=== PATIENT | female | born 1945 | race Caucasian/White ===

== ENCOUNTER 2018-07-23 16:13 | Outpatient (REF) | payer MEDICARE, OTHER, SELFPAY ==
[2018-07-23 22:16] LABS: Anion Gap 9.5 mmol/L (3-11); BUN 12 mg/dL (7-18); CO2 28.5 mmol/L (21.0-32.0); CREATININE 0.68 mg/dL (0.55-1.02); Calcium 9.6 mg/dL (8.5-10.1); Chloride 100 mmol/L (98-107); Glucose 114 mg/dL (70-100); Potassium 3.4 mmol/L (3.5-5.1); Sodium 138 mmol/L (136-145)
== END 2018-07-23 16:33 ==
LOC: NCHCN 16:13
PROVIDERS: Visit Provider Nurse Practitioner Family
DX: R73.03 Prediabetes (principal); I10 Essential (primary) hypertension
CPT/HCPCS: 80048; 83036

== ENCOUNTER 2018-10-29 09:43 | Outpatient (REF) | payer MEDICARE, OTHER, SELFPAY | END 2018-10-29 10:03 | LOC: NCHCN 09:43 | PROVIDERS: PCP Nurse Practitioner Family; Visit Provider Nurse Practitioner Family | DX: I10 Essential (primary) hypertension (principal); Z86.39 Personal history of other endocrine, nutritional and metabolic disease | CPT/HCPCS: 84132 ==

== ENCOUNTER 2018-12-04 17:20 | Outpatient (REF) | payer MEDICARE, OTHER, SELFPAY ==
[2018-12-04 21:22] LABS: Potassium 3.4 mmol/L (3.5-5.1)
== END 2018-12-04 17:40 ==
LOC: NCHCN 17:20
PROVIDERS: PCP Nurse Practitioner Family; Visit Provider Registered Nurse
DX: Z86.39 Personal history of other endocrine, nutritional and metabolic disease (principal); I10 Essential (primary) hypertension
CPT/HCPCS: 84132

== ENCOUNTER 2019-01-01 13:38 | Outpatient (REF) | payer MEDICARE, OTHER, SELFPAY ==
[2019-01-01 22:36] LABS: Potassium 3.6 mmol/L (3.5-5.1)
== END 2019-01-01 13:58 ==
LOC: NCHCN 13:38
PROVIDERS: PCP Nurse Practitioner Family; Visit Provider Registered Nurse
DX: E87.6 Hypokalemia (principal); R39.9 Unspecified symptoms and signs involving the genitourinary system
CPT/HCPCS: 84132; 87086

== ENCOUNTER 2019-03-28 10:46 | Outpatient (REF) | payer MEDICARE, OTHER, SELFPAY ==
[2019-03-28 22:34] LABS: BUN 19 mg/dL (7-18); CREATININE 0.73 mg/dL (0.55-1.02); Chloride 103 mmol/L (98-107); Glucose 95 mg/dL (74-106); Magnesium 1.6 mg/dL (1.8-2.4); Sodium 140 mmol/L (136-145); Vitamin B12 378 pg/mL (193-986)
== END 2019-03-28 11:06 ==
LOC: NCHCN 10:46
PROVIDERS: PCP Nurse Practitioner Family; Visit Provider Nurse Practitioner Family
DX: I10 Essential (primary) hypertension (principal); R73.03 Prediabetes; K21.9 Gastro-esophageal reflux disease without esophagitis; Z86.39 Personal history of other endocrine, nutritional and metabolic disease
CPT/HCPCS: 80048; 82607; 83735

== ENCOUNTER 2019-10-24 13:41 | Outpatient (REF) | payer MEDICARE, OTHER, SELFPAY ==
[2019-10-24 20:59] LABS: HCT 32.5 % (36.0-46.0); HGB 9.9 g/dL (12.0-15.5); Mean Corp. HGB Concentration 30.5 g/dL (32.0-36.0); Mean Corpuscular Hemoglobin 24.7 pg (27.0-33.0); Mean Platelet Volume 9.6 fL (8.0-11.0); Platelet Count 482 x1000/uL (130-400); RBC 4.01 m/cumm (4.00-5.20); RBC Distribution Width 14.9 % (11.7-14.6); White Blood Cell Count 7.03 k/cumm (4.4-10.8)
[2019-10-24 21:41] LABS: Iron 27 ug/dL (50-170); Total Iron Binding Capacity 361 ug/dL (250-450)
[2019-10-24 21:51] LABS: Folate 17.2 ng/mL (8.6-20.0)
== END 2019-10-24 14:01 ==
LOC: NCHCN 13:41
PROVIDERS: PCP Nurse Practitioner Family; Visit Provider Nurse Practitioner Family
DX: D64.9 Anemia, unspecified (principal)
CPT/HCPCS: 85027; 82746; 83540; 83550

== ENCOUNTER 2019-12-15 13:47 | Outpatient (REF) | payer MEDICARE, OTHER, SELFPAY ==
[2019-12-15 21:03] LABS: HGB 11.5 g/dL (11.2-15.7); MCH 25.4 pg (27.0-33.0); MCHC 31.1 % (32.0-36.0); MCV 81.7 fL (80-95); MPV 10.2 fL (8.0-11.0); Platelet Count 373 10^3/uL (130-400); RBC 4.53 10^6/uL (3.93-5.22); RDW 18.7 % (11.7-14.6); RDW-SD 55.7 fL
[2019-12-15 21:16] LABS: Iron 47 ug/dL (50-170); Total Iron Binding Capacity 343 ug/dL (250-450); Transferrin Sat 14 % (15-50)
== END 2019-12-15 14:07 ==
LOC: NCHCN 13:47
PROVIDERS: PCP Nurse Practitioner Family; Visit Provider Nurse Practitioner Family
DX: D50.9 Iron deficiency anemia, unspecified (principal); F32.0 Major depressive disorder, single episode, mild
CPT/HCPCS: 85027; 83540; 83550

== ENCOUNTER 2020-09-21 11:14 | Outpatient (REF) | payer MEDICARE, OTHER, SELFPAY ==
[2020-09-21 13:45] LABS: HCT 39.2 % (36.0-46.0); HGB 12.5 g/dL (11.2-15.7); MCH 30.4 pg (27.0-33.0); MCHC 31.9 % (32.0-36.0); MCV 95.4 fL (80-95); Platelet Count 342 10^3/uL (130-400); RBC 4.11 10^6/uL (3.93-5.22); RDW 12.9 % (11.7-14.6); RDW-SD 45.2 fL; WBC 6.82 10^3/uL (4.4-10.8)
[2020-09-21 13:58] LABS: Iron 52 ug/dL (50-170); Total Iron Binding Capacity 333 ug/dL (250-450); Transferrin Sat 16 % (15-50)
[2020-09-21 14:29] LABS: Anion Gap 7.2 mmol/L (3-11); BUN 14 mg/dL (7-18); CO2 30.8 mmol/L (21.0-32.0); CREATININE 0.7 mg/dL (0.55-1.02); Calcium 9.4 mg/dL (8.5-10.1); Chloride 104 mmol/L (98-107); Ferritin 18 ng/mL (8-252); Glucose 96 mg/dL (74-106); Magnesium 1.7 mg/dL (1.8-2.4); Potassium 4.4 mmol/L (3.5-5.1); Sodium 142 mmol/L (136-145); TSH 1.64 uIU/mL (0.36-3.74); Vitamin B12 249 pg/mL (193-986)
[2020-09-21 15:00] LABS: Hemoglobin A1C 5.3 % (<5.7)
== END 2020-09-21 11:15 | disposition home or self-care (01) ==
LOC: NCHCN 11:14
PROVIDERS: PCP Nurse Practitioner Family; Visit Provider Nurse Practitioner Family
DX: I10 Essential (primary) hypertension (principal); R73.03 Prediabetes; E83.42 Hypomagnesemia; F32.0 Major depressive disorder, single episode, mild; D50.9 Iron deficiency anemia, unspecified; M17.0 Bilateral primary osteoarthritis of knee; Z86.39 Personal history of other endocrine, nutritional and metabolic disease
CPT/HCPCS: 80048; 85027; 82607; 82728; 83036; 83540; 83550; 83735; 84443

== ENCOUNTER 2020-11-08 13:03 | Outpatient (REF) | payer MEDICARE, OTHER, SELFPAY | END 2020-11-08 13:04 | disposition home or self-care (01) | LOC: LBN 13:03 | PROVIDERS: PCP Nurse Practitioner Family; Visit Provider Nurse Practitioner Family | DX: R30.0 Dysuria (principal) | CPT/HCPCS: 87077; 87086; 87186 ==

== ENCOUNTER 2021-02-21 11:13 | Outpatient (REF) | payer MEDICARE, OTHER, SELFPAY ==
[2021-02-21 16:06] LABS: HCT 39.9 % (36.0-46.0); HGB 12.7 g/dL (11.2-15.7); MCH 28.9 pg (27.0-33.0); MCHC 31.8 % (32.0-36.0); MCV 90.9 fL (80-95); MPV 10.5 fL (8.0-11.0); Platelet Count 365 10^3/uL (130-400); RBC 4.39 10^6/uL (3.93-5.22); RDW 13.3 % (11.7-14.6); RDW-SD 44.7 fL; WBC 7.51 10^3/uL (4.4-10.8)
[2021-02-21 17:10] LABS: Iron 120 ug/dL (50-170); Total Iron Binding Capacity 309 ug/dL (250-450); Transferrin Sat 39 % (15-50)
[2021-02-21 17:21] LABS: BUN 12 mg/dL (7-18); CREATININE 0.7 mg/dL (0.55-1.02); Chloride 102 mmol/L (98-107); Ferritin 24 ng/mL (8-252); Glucose 98 mg/dL (74-106); Potassium 3.9 mmol/L (3.5-5.1); Sodium 141 mmol/L (136-145); Vitamin B12 267 pg/mL (193-986)
== END 2021-02-21 11:14 | disposition home or self-care (01) ==
LOC: NCHCN 11:13
PROVIDERS: PCP Nurse Practitioner Family; Visit Provider Nurse Practitioner Family
DX: D50.9 Iron deficiency anemia, unspecified (principal); R01.1 Cardiac murmur, unspecified; I10 Essential (primary) hypertension; I83.10 Varicose veins of unspecified lower extremity with inflammation; R73.03 Prediabetes; G89.4 Chronic pain syndrome
CPT/HCPCS: 80048; 85027; 82607; 82728; 83540; 83550

== ENCOUNTER 2021-08-22 16:01 | Outpatient (REF) | payer MEDICARE, OTHER, SELFPAY ==
[2021-08-22 22:24] LABS: HCT 38.1 % (36.0-46.0); HGB 12.1 g/dL (11.2-15.7); MCH 29.4 pg (27.0-33.0); MCHC 31.8 % (32.0-36.0); MCV 93 fL (80-95); MPV 11.2 fL (8.0-11.0); Platelet Count 346 10^3/uL (130-400); RBC 4.11 10^6/uL (3.93-5.22); RDW 13.3 % (11.7-14.6); RDW-SD 45.3 fL; WBC 8.26 10^3/uL (4.4-10.8)
[2021-08-22 22:27] LABS: ALT 18 U/L (14-59); AST 17 U/L (15-37); Albumin 3.3 g/dL (3.4-5.0); Alkaline Phosphatase 97 U/L (46-116); BUN 14 mg/dL (7-18); Bilirubin, Total 0.4 mg/dL (0.2-1.0); CREATININE 0.9 mg/dL (0.55-1.02); Calcium 8.7 mg/dL (8.5-10.1); Chloride 101 mmol/L (98-107); Glucose 109 mg/dL (74-106); Potassium 3.2 mmol/L (3.5-5.1); Sodium 139 mmol/L (136-145); Total Protein 6.5 g/dL (6.4-8.2)
[2021-08-22 22:32] LABS: Iron 35 ug/dL (50-170); Total Iron Binding Capacity 245 ug/dL (250-450); Transferrin Sat 14 % (15-50)
== END 2021-08-22 16:02 | disposition home or self-care (01) ==
LOC: NCHCN 16:01
PROVIDERS: PCP Nurse Practitioner Family; Visit Provider Nurse Practitioner Family
DX: K92.1 Melena (principal); D50.9 Iron deficiency anemia, unspecified
CPT/HCPCS: 80053; 85027; 83540; 83550

== ENCOUNTER 2021-08-23 20:39 | Outpatient (REF) | payer MEDICARE, OTHER, SELFPAY | END 2021-08-23 20:40 | disposition home or self-care (01) | LOC: NCHCN 20:39 | PROVIDERS: PCP Nurse Practitioner Family; Visit Provider Nurse Practitioner Family | CPT/HCPCS: 87329; 87493; 87505; 83630; 87177 ==

== ENCOUNTER 2021-09-08 09:07 | Outpatient (REF) | payer MEDICARE, OTHER, SELFPAY ==
[2021-09-08 14:15] LABS: HCT 38.1 % (36.0-46.0); HGB 12.1 g/dL (11.2-15.7); MCH 28.7 pg (27.0-33.0); MCHC 31.8 % (32.0-36.0); MCV 90 fL (80-95); MPV 11.2 fL (8.0-11.0); Platelet Count 351 10^3/uL (130-400); RBC 4.22 10^6/uL (3.93-5.22); RDW 13.8 % (11.7-14.6); RDW-SD 45.7 fL; WBC 5.67 10^3/uL (4.4-10.8)
[2021-09-08 14:23] LABS: Anion Gap 7.5 mmol/L (3-11); BUN 14 mg/dL (7-18); CO2 27.5 mmol/L (21.0-32.0); CREATININE 0.7 mg/dL (0.55-1.02); Calcium 9.4 mg/dL (8.5-10.1); Chloride 103 mmol/L (98-107); Glucose 110 mg/dL (74-106); Potassium 4.1 mmol/L (3.5-5.1); Sodium 138 mmol/L (136-145)
[2021-09-08 15:29] LABS: Iron 96 ug/dL (50-170); Total Iron Binding Capacity 288 ug/dL (250-450); Transferrin Sat 33 % (15-50)
[2021-09-08 15:42] LABS: Ferritin 42 ng/mL (8-252)
== END 2021-09-08 09:08 | disposition home or self-care (01) ==
LOC: NCHCN 09:07
PROVIDERS: PCP Nurse Practitioner Family; Visit Provider Nurse Practitioner Family
DX: D50.9 Iron deficiency anemia, unspecified (principal); I10 Essential (primary) hypertension; Z87.19 Personal history of other diseases of the digestive system; R19.7 Diarrhea, unspecified; I83.10 Varicose veins of unspecified lower extremity with inflammation
CPT/HCPCS: 80048; 85027; 82728; 83540; 83550

== ENCOUNTER 2021-11-12 10:43 | Emergency (ER) | payer MEDICARE, OTHER, SELFPAY ==
[2021-11-12 10:59] VITALS: BP 122/65; PULSE 100; RESP 18; TEMP 36.9; O2SAT 95
--- NOTE | 2021-11-12 11:01 | W.ED.GENAD ---
Discharge Plan Disposition Patient Disposition: HOME Condition: Stable Discharge Details Clinical Impression: Acute UTI Primary Care Provider: Mira Davies ED Provider: Bernard Juan Home Meds and New Rx's Prescriptions: New nitrofurantoin monohyd/m-cryst [Macrobid] 100 mg capsule 100 mg PO Q12H 7 Days Qty: 14 0RF Rx Instructions: must administer with a meal/food Continued atorvastatin 20 mg Tablet 20 mg PO QHS citalopram 40 mg Tablet 40 mg PO DAILY chlorthalidone 25 mg Tablet 25 mg PO DAILY gabapentin 800 mg Tablet 800 mg PO TID omeprazole 20 mg Capsule,Delayed Release(Dr/Ec) 20 mg PO DAILY celecoxib 100 mg Capsule 100 mg PO DAILY losartan 100 mg Tablet 100 mg PO DAILY magnesium 200 mg Tablet 400 mg PO DAILY bupropion HCl 150 mg Tablet Extended Release 24 Hr 150 mg PO DAILY Fish Oil 340-1,000 mg Capsule 1 cap PO BID ferrous gluconate 324 mg (38 mg iron) Tablet 324 mg PO DAILY calcium carb,lactat-vitamin D3 200 mg-6.25 mcg (250 unit) Tablet 1 tab PO DAILY potassium chloride 20 mEq Tablet Extended Release 20 meq PO DAILY B12 Active 1,000 mcg Tablet,Chewable 1,000 mcg PO DAILY Discharge Instructions Instructions: Urinary Tract Infection in Women (ED) Additional Instructions: Macrobid as directed. Plenty of fluids to avoid dehydration. [id number]-skbizbc medications such as Azo and/or Tylenol for symptomatic control. Please watch for new or worsening symptoms and return to the ER for any concerns. Otherwise please contact your primary care provider on Sunday to discuss your ER visit and need for outpatient reevaluation.r Medical Decision Making 75-year-old female presents for evaluation of UTI-like symptoms, denies fever, chills, vomiting. Clinically she appears well, nontoxic. No evidence of hypotension, fever, heart rate in the 90s. Plan is to repeat urinalysis and obtain culture as well as obtain routine screening values such as CBC and CMP. Will give 1 L IV fluid White blood cell count of 18.45 urine reveals nitrate positive, moderate leuk esterase, greater than 50 white cells. Culture is indicated I reviewed the patient's culture activity from 11-08-2020, to isolate, greater than 100,000 E. coli UA following extended spectrum beta she was-lactamases, susceptible to Macrobid, imipenem, piperacillin-tazobactam. I did review the up-to-date recommendations on ESBL. With uncomplicated cystitis in the setting of ESBL both Macrobid and fosfomycin would be appropriate While she does have moderate leukocytosis, she does appear well, nontoxic, no evidence of tachycardia, hypotension, or vomiting. No CVA tenderness. Discussed work-up with patient and family, discussed options. Again she would prefer to be discharged home if at all possible. I do feel as though initiating oral antibiotics and strict return precautions is reasonable. She has not had any antibiotic therapy and thus has not failed any antibiotic therapy. Plan is to provide first dose of Macrobid now. Strict discharge and return precautions were provided. Patient understands, is agreeable to this plan, and has no additional questions or concerns upon discharge. This documentation was generated using [employer] system, please disregard any oddities of phrase or misspellings. Medical Records Medical records reviewed: Yes I reviewed the patient's medical records. Lab Data Lab results reviewed: Yes I reviewed the patient's lab results. Labs: 11/12/21 10:55 Urine - Reflex from Ua Urine Culture - Pending Laboratory Tests Range/Units 11/12/21 11/12/21 11/12/21 10:55 11:43 11:43 WBC (4.4-10.8) 10^3/uL 18.45 H RBC (3.93-5.22) 10^6/uL 3.68 L Hgb (11.2-15.7) g/dL 11.2 Hct (36.0-46.0) % 32.9 L MCV (80-95) fL 89 MCH (27.0-33.0) pg 30.4 MCHC (32.0-36.0) % 34.0 RDW (11.7-14.6) % 13.8 Plt Count (130-400) 10^3/uL 303 MPV (8.0-11.0) fL 9.8 Immature Gran % 0.5 Neutrophils % 86.5 Lymphocytes % 5.4 Monocytes % 7.2 Eosinophils % 0.1 Basophils % 0.3 Nucleated RBC % (0.0-0.3) % 0.0 Absolute Neutrophils (1.2-6.7) 10^3/uL 15.96 H Absolute Lymphocytes (1.2-3.4) 10^3/uL 1.00 L Absolute Monocytes (0.1-0.8) 10^3/uL 1.33 H Absolute Eosinophils (0.0-0.7) 10^3/uL 0.02 Absolute Basophils (0.0-0.2) 10^3/uL 0.06 Sodium (136-145) mmol/L 134 L Potassium (3.5-5.1) mmol/L 3.4 L Chloride (98-107) mmol/L 98 Carbon Dioxide (21.0-32.0) mmol/L 28.0 Anion Gap (3-11) mmol/L 8.0 BUN (7-18) mg/dL 12 Creatinine (0.55-1.02) mg/dL 0.8 Estimated GFR/1.73 m2 (mL/min/1.73m2) >= 60.00 Glucose (74-106) mg/dL 117 H Calcium (8.5-10.1) mg/dL 9.0 Total Bilirubin (0.2-1.0) mg/dL 1.1 H AST (15-37) U/L 20 ALT (14-59) U/L 21 Alkaline Phosphatase (46-116) U/L 105 Total Protein (6.4-8.2) g/dL 6.6 Albumin (3.4-5.0) g/dL 2.9 L Urine Color (Yellow) Yellow Urine Clarity (Clear) Sl Cloudy Urine pH (5-8) 7.5 Ur Specific [place] (1.005-1.025) 1.015 Urine Protein (Negative) mg/dL 30 H Urine Ketones (Negative) mg/dL Trace H Urine Blood (Negative) Trace-intact H Urine Nitrite (Negative) Positive H Urine Bilirubin (Negative) Negative Urine Urobilinogen (Up TO 0.2) EU/dL 1.0 H Ur Leukocyte Esterase (Negative) Moderate H Urine RBC (0-2) HPF 3-5 H Urine WBC (0-5) HPF >50 H Ur Epithelial Cells (Negative) HPF Few Urine Crystals (Negative) HPF Negative Urine Bacteria (Negative) HPF Moderate Urine Casts (Negative) LPF Negative Urine Mucus (Negative) Negative Urine Other (Negative) Few Renal Ur Culture Indicated? Yes Urine Glucose (Negative) mg/dL Negative HPI General Mode of arrival: ambulatory. Date/Time Provider Initiated Documentation: 11/12/21 10:45. Limitations to Documentation: no limitations. Information obtained by: patient. HPI Narrative: This is a 75-year-old female with a past medical history that includes GERD, hyperlipidemia depression hypertension, presenting to the ER for UTI-like symptoms for the past 6 days. Seen at urgent care just prior to arrival, previous culture and sensitivity revealed ESBL, urgent care does not have Macrobid or fosfomycin so recommended coming to the ER for further evaluation. Patient denies any fever or chills. Reports some mild lower abdominal pressure, occasional nausea but no vomiting. Occasional bilateral lower back pain. She denies recent illness or trauma. Patient states that she would prefer to be discharged home as opposed to hospitalization with IV antibiotics. Related Data Home Medications Medication Instructions Recorded Confirmed atorvastatin 20 mg tablet 20 mg PO QHS 11/12/21 11/12/21 bupropion HCl 150 mg 24 hr tablet, 150 mg PO DAILY 11/12/21 11/12/21 extended release calcium carb and lactate 200 1 tab PO DAILY 11/12/21 11/12/21 mg-vitamin D3 6.25 mcg (250 unit) tablet celecoxib 100 mg capsule 100 mg PO DAILY 11/12/21 11/12/21 chlorthalidone 25 mg tablet 25 mg PO DAILY 11/12/21 11/12/21 citalopram 40 mg tablet 40 mg PO DAILY 11/12/21 11/12/21 ferrous gluconate 324 mg (38 mg 324 mg PO DAILY 11/12/21 11/12/21 iron) tablet gabapentin 800 mg tablet 800 mg PO TID 11/12/21 11/12/21 losartan 100 mg tablet 100 mg PO DAILY 11/12/21 11/12/21 magnesium 200 mg tablet 400 mg PO DAILY 11/12/21 11/12/21 mecobalamin (vitamin B12) 1,000 1,000 mcg PO DAILY 11/12/21 11/12/21 mcg chewable tablet (B12 Active) nitrofurantoin 100 mg PO Q12H 7 days #14 caps 11/12/21 monohydrate/macrocrystals 100 mg capsule (Macrobid) omega-3 fatty acids-fish oil 340 1 cap PO BID 11/12/21 11/12/21 mg-1,000 mg capsule (Fish Oil) omeprazole 20 mg capsule,delayed 20 mg PO DAILY 11/12/21 11/12/21 release potassium chloride 20 mEq 20 meq PO DAILY 11/12/21 11/12/21 tablet,extended release Previous Rx's Medication Instructions Recorded nitrofurantoin 100 mg PO Q12H 7 days #14 caps 11/12/21 monohydrate/macrocrystals 100 mg capsule (Macrobid) Allergies Allergy/AdvReac Type Severity Reaction Status Date / Time lisinopril AdvReac Other (See Unverified 11/12/21 12:55 Comment) Review of Systems Constitutional Constitutional: Denies fever(s) Cardiovascular Cardiovascular: Denies chest pain and Denies dyspnea Respiratory Respiratory: Denies dyspnea Gastrointestinal Gastrointestinal: Reports abdominal pain (Low pressure), Reports nausea and Denies vomiting Genitourinary Genitourinary: Denies hematuria and Reports dysuria Musculoskeletal Musculoskeletal: Reports back pain Integumentary/Breasts Skin/Breast: Denies rash PFSH All Active Problems Acute UTI (Acute) Social History Smoking/Tobacco Use Status: Never Smoking risk assessment performed?: Yes Alcohol Intake: current Alcohol Intake frequency: a few times a week Drug use: Never Substance use type: does not use Do you feel safe at home: Yes Do you feel safe in your relationship?: Yes Exam Const General: cooperative, healthy appearing, comfortable and no acute distress Orientation: alert and awake HENMT Head: normal to inspection, normocephalic and atraumatic Eyes Conjunctivae: conjunctivae normal Neck Neck: normal visual inspection, trachea midline and supple Resp Effort & Inspection: normal respiratory effort and able to speak in complete sentences Auscultation: clear to auscultation bilaterally Cardio Rate: regular rate Rhythm: regular rhythm GI Inspection: obesity Palpation: soft, not firm, no guarding, no pulsatile masses and nontender Auscultation: normal bowel sounds Back/Spine/Pelvis Back: no CVA tenderness and No back tenderness Skin General skin exam: no rashes or lesions noted Neuro General: patient alert, patient awake, moves all extremities and no focal motor deficits Sensory Exam: no sensory deficits noted Psych Appearance: grossly normal Mental Status: mental status grossly normal
[2021-11-12 11:03] LABS: Bilirubin Negative (Negative); Blood Trace-intact (Negative); Clarity Sl Cloudy (Clear); Glucose Negative (Negative); Ketones Trace mg/dL (Negative); Leukocyte Esterase Moderate (Negative); Nitrite Positive (Negative); Specific Gravity 1.015 (1.005-1.025); pH 7.5 (5-8)
[2021-11-12 11:18] LABS: Epithelial Cells Few HPF (Negative); WBC >50 HPF (0-5)
[2021-11-12 11:19] LABS: Bacteria Moderate HPF (Negative); C & S Indicated? Yes; Casts Negative LPF (Negative); Crystals Negative HPF (Negative); Mucus Negative (Negative); Other Cells Few Renal (Negative)
[2021-11-12] MEDS: Normal Saline 1,000 ML 1000 ML IV (11:46)
[2021-11-12 11:53] LABS: Abs Immature Grans 0.09 10^3/uL (0.0-0.06); Absolute Monocyte Count 1.33 10^3/uL (0.1-0.8); Basophils % 0.3; Eosinophils % 0.1; HCT 32.9 % (36.0-46.0); HGB 11.2 g/dL (11.2-15.7); Immature Grans % 0.5; Lymphocytes % 5.4; MCH 30.4 pg (27.0-33.0); MCV 89 fL (80-95); MPV 9.8 fL (8.0-11.0); Monocytes % 7.2; Neutrophils % 86.5; Platelet Count 303 10^3/uL (130-400); RBC 3.68 10^6/uL (3.93-5.22); RDW 13.8 % (11.7-14.6); RDW-SD 45.1 fL; WBC 18.45 10^3/uL (4.4-10.8)
[2021-11-12 12:06] LABS: ALT 21 U/L (14-59); AST 20 U/L (15-37); Albumin 2.9 g/dL (3.4-5.0); Alkaline Phosphatase 105 U/L (46-116); BUN 12 mg/dL (7-18); Bilirubin, Total 1.1 mg/dL (0.2-1.0); CREATININE 0.8 mg/dL (0.55-1.02); Chloride 98 mmol/L (98-107); Glucose 117 mg/dL (74-106); Potassium 3.4 mmol/L (3.5-5.1); Sodium 134 mmol/L (136-145); Total Protein 6.6 g/dL (6.4-8.2)
[2021-11-12 12:07] LABS: Absolute Basophil Count 0.06 10^3/uL (0.0-0.2); Absolute Eosinophil Count 0.02 10^3/uL (0.0-0.7); Absolute Neutrophil Count 15.96 10^3/uL (1.2-6.7)
[2021-11-12] MEDS: MacroBID 100 MG CAP PO (12:39)
[2021-11-12 13:06] VITALS: BP 146/85; PULSE 95; RESP 18; O2SAT 97
== END 2021-11-12 13:05 | disposition home or self-care (01) ==
PROVIDERS: Emergency Provider Physician Assistant; PCP Nurse Practitioner Family
DX: N39.0 Urinary tract infection, site not specified (principal); B96.20 Unspecified Escherichia coli [E. coli] as the cause of diseases classified elsewhere
CPT/HCPCS: 36415; 80053; 87077; 96360; 99284; 81003; 81015; 85025; 87086; 87186

== ENCOUNTER 2021-11-12 13:17 | Outpatient (REF) | payer MEDICARE, OTHER, SELFPAY | END 2021-11-12 13:18 | disposition home or self-care (01) | LOC: LBN 13:17 | PROVIDERS: PCP Nurse Practitioner Family; Visit Provider Nurse Practitioner Family ==

== ENCOUNTER 2021-11-14 11:02 | Inpatient (IN) | payer MEDICARE, OTHER, SELFPAY ==
[2021-11-14] VITALS (8 sets, daily range): BP systolic 116–144; BP diastolic 61–75; PULSE 82–94; RESP 14–20; TEMP 37.7–38.3; O2SAT 94–97
--- NOTE | 2021-11-14 11:36 | ED.GENADUL_ITS ---
Discharge Plan Disposition Patient Disposition: [facility] IN[facility] Condition: Improving Discharge Details Chief Complaint: GenMedical Clinical Impression: Acute UTI, Sepsis Admit Date/Time: 11/14/21 13:19 Admit Provider: Misty Richter Attending Provider: Misty Richter Primary Care Provider: Mira Davies ED Provider: Rosetta Orona Discharge Instructions Activity:: Activity as Tolerated Equipment/Supplies:: No Equipment Needed Diet:: As Tolerated Discharge Orders Discharge Orders: Discharge Order (Routine); Ordered 11/16/21 Ordered By: Eli Montalvo Discharge Data Discharge Date/Time-TO BE ENTERED AT DEPARTURE: 11/14/21 14:46 Medical Decision Making Patient is a pleasant 75-year-old female, accompanied by significant other, with chief complaint of nausea, vomiting, UTI, fever. Patient was seen here 2 days ago at which time she was diagnosed with a urinary tract infection. Patient E. coli, sensitivities are pending. At that time, patient was noted to have notable leukocytosis with a white count of 18 but was otherwise doing well systemically. Patient was started on Macrobid. Has been tolerating medication well up until this morning. Did not take it secondary to nausea and vomiting. States that she began having some vomiting and diarrhea yesterday. Describes having multiple very small loose bowel movements since starting the antibiotics. She denies any abdominal pain. Denies any hematemesis, bright red blood per rectum or melena. Past surgical history pertinent for hysterectomy, appendectomy, tubal ligation. Continues to have dysuria, increased frequency and urgency. Began having chills yesterday but no documented fever at home. Has not taken antipyretics today. On exam, patient appears acutely ill. She is hypertensive, tachycardic and febrile. Lungs are clear, abdomen is benign. She has tenderness with percuss ion over right CVA. No lower extremity edema although the patient does report that she can have lower extremity edema from time to time. She endorses past medical history pertinent for hypertension, hypercholesterolemia but denies any history of CHF or other cardiac etiology. Concern at this time for worsening UTI, possible bacteremia. Will obtain blood cultures, repeat labs, obtain C. difficile testing, gently hydrate the patient, provide antipyretic, antiemetic and antibiotic. Reviewed up-to-date for E. coli IV options and will treat patient with cefepime. Labs reviewed. White count is downtrending now to 15.9. CMP significant for slightly low potassium at 3.4, replenish this here. She does have an anion anion gap of 13. Kidney function within normal limits. Alk phos is slightly elevated at 135 which is new for the patient. Albumin 2.7, she does appear to be slightly chronically low. Urine pending. Reevaluated the patient. She is currently afebrile, her nausea has resolved and she is feeling significantly improved. As the patient did fail outpatient management, I do feel that admission would be appropriate which she and her are in agreement with. I am concerned that if she was to return home she may continue to vomit not able to tolerate her antibiotics. Consulted Dr. LEVIN who agrees to admission. Wound looked more at patient's previous urinalyses we will transition her to a different regimen based on previous sensitivities. Dr. Richter agrees to admission. POONAM test ordered. Patient agreement with plan. HPI General Date/Time Provider Initiated Documentation: 11/14/21 11:22 . Limitations to Documentation: no limitations . Information obtained by: patient, family, RN notes reviewed and old records reviewed . History of Present Illness 75 year old F presents to the emergency department with the chief complaint of Dysuria, urgency, frequency, fever, nausea, vomiting, described as moderate, Quality is described as burning, and is localized to the pelvis and genitals. Patient reports no radiation. Patient started experiencing this day(s) and it has been constant. No relieving factors improve symptom(s), Other factors that worsen symptoms (with urination) . Patient notes fever/chills, loss of appetite, malaise and nausea/vomiting; denies chest pain, cough, diaphoresis, rash and shortness of breath. Patient did receive the following treatments prior to arrival, other (nitrofurantoin) Related Data Home Medications Medication Instructions Recorded Confirmed atorvastatin 20 mg tablet 20 mg PO QHS 11/12/21 11/14/21 bupropion HCl 150 mg 24 hr tablet, 150 mg PO DAILY 11/12/21 11/14/21 extended release calcium carb and lactate 200 1 tab PO DAILY 11/12/21 11/14/21 mg-vitamin D3 6.25 mcg (250 unit) tablet celecoxib 100 mg capsule 100 mg PO DAILY 11/12/21 11/14/21 chlorthalidone 25 mg tablet 25 mg PO DAILY 11/12/21 11/14/21 citalopram 40 mg tablet 40 mg PO DAILY 11/12/21 11/14/21 ferrous gluconate 324 mg (38 mg 324 mg PO DAILY 11/12/21 11/14/21 iron) tablet gabapentin 800 mg tablet 800 mg PO TID 11/12/21 11/14/21 losartan 100 mg tablet 100 mg PO DAILY 11/12/21 11/14/21 magnesium 200 mg tablet 400 mg PO DAILY 11/12/21 11/14/21 mecobalamin (vitamin B12) 1,000 1,000 mcg PO DAILY 11/12/21 11/14/21 mcg chewable tablet (B12 Active) omega-3 fatty acids-fish oil 340 1 cap PO BID 11/12/21 11/14/21 mg-1,000 mg capsule (Fish Oil) omeprazole 20 mg capsule,delayed 20 mg PO DAILY 11/12/21 11/14/21 release potassium chloride 20 mEq 20 meq PO DAILY 11/12/21 11/14/21 tablet,extended release Allergies Allergy/AdvReac Type Severity Reaction Status Date / Time lisinopril AdvReac Other (See Unverified 11/14/21 11:14 Comment) nitrofurantoin AdvReac Severe Other (See Uncoded 11/14/21 18:24 Comment) General Stated Complaint: GenMedical CARO: 3 Review of Systems Constitutional Constitutional: Reports as per HPI and Denies headache(s) ENT Ears, Nose, Mouth, and Throat: Denies headache(s) Cardiovascular Cardiovascular: Reports as per HPI, Denies chest pain and Denies dyspnea Respiratory Respiratory: Reports as per HPI, Denies cough and Denies dyspnea Gastrointestinal Gastrointestinal: Reports as per HPI Musculoskeletal Musculoskeletal: Reports as per HPI Integumentary/Breasts Skin/Breast: Reports as per HPI and Denies rash Neurologic Neurologic: Reports as per HPI and Denies headache(s) PFSH All Active Problems (Updated 11/28/21 @ 08:32 by ABHAY Szymanski) Hypomagnesemia (Acute) Adverse effect of nitrofurantoin (Acute) Sepsis (Acute) E. coli UTI (Acute) Acute UTI (Acute) Medical History (Updated 11/28/21 @ 08:32 by ABHAY Szymanski) Chronic edema GERD (gastroesophageal reflux disease) History of ESBL E. coli infection Hypertension Hypokalemia Iron deficiency anemia Uterine cancer Surgical History (Updated 11/14/21 @ 19:16 by Misty Richter MD) H/O total hysterectomy with bilateral salpingo-oophorectomy (BSO) H/O tubal ligation History of appendectomy S/p bilateral shoulder joint replacement Family History (Updated 11/14/21 @ 19:18 by Misty Richter MD) Mother Cancer breast Brother Cancer colorectal cancer Father Cancer metastatic cancer of unknown primary Social History Smoking/Tobacco Use Status: Never Smoking risk assessment performed?: Yes Alcohol Intake: current Alcohol Intake frequency: a few times a week Drug use: Never Substance use type: does not use Do you feel safe at home: Yes Do you feel safe in your relationship?: Yes Exam Const General: cooperative, comfortable, no acute distress, well developed and ill appearing acutely Nutritional Appearance: well nourished and overweight Orientation: alert and awake HENMT Head: normal to inspection Mouth: mucous membranes dry (appears dry) Resp Effort & Inspection: normal respiratory effort, able to speak in complete sentences and no respiratory distress Auscultation: clear to auscultation bilaterally, no rales, no rhonchi and no wheezes Cardio Rate: regular rate Rhythm: regular rhythm Heart Sounds: S1 normal and S2 normal GI Inspection: normal to inspection Palpation: soft, not firm, no guarding, no masses, not rigid and nontender Percussion: normal to percussion Auscultation: normal bowel sounds Back/Spine/Pelvis Back: CVA tenderness (right) Skin General skin exam: no rashes or lesions noted Trauma: no lacerations or abrasions Neuro General: patient alert and patient awake Cognition: normal cognition Speech: speech normal Gait: normal gait Psych Appearance: grossly normal and well kempt Mental Status: mental status grossly normal Speech and Movement: speech and movement normal Course Vital Signs Vital signs: Vital Signs Temperature 37.8 C H 11/14/21 11:12 Pulse 94 H 11/14/21 11:12 Respiratory Rate 14 11/14/21 11:12 Blood Pressure 144/61 H 11/14/21 11:12 Pulse Oximetry 97 11/14/21 11:12 Temperature 37.8 C H 11/14/21 11:12 Temperature Source Oral 08/01/22 11:12 Pulse 94 H 11/14/21 11:12 Respiratory Rate 14 11/14/21 11:12 Respiratory Effort Non-Labored 11/14/21 11:16 Respiratory Depth Normal 11/14/21 11:16 Respiratory Pattern Normal 11/14/21 11:16 Blood Pressure 144/61 H 11/14/21 11:12 Blood Pressure Position Sitting 11/14/21 11:12 Pulse Oximetry 97 11/14/21 11:12 Oxygen Delivery Method Room Air 11/14/21 11:12 Oxygen Flow Rate 0 11/14/21 11:12 Pain Level 9 11/14/21 11:12 Lab/Test Results Lab/Test Results: 11/14/21 11:24 Blood Blood Culture - Pending 11/14/21 11:24 Blood Blood Culture - Pending PAWSS Have you Been Recently Intoxicated or Drunk Within the Last 30 days?: No Have you Ever Experienced Previous Episodes of Alcohol Withdrawal?: No Have you ever Experienced Withdrawal Seizures?: No Have you ever Experienced Delirium Tremens(DT)s?: No Have you ever undergone Alcohol Rehabilitation Treatment (i.e, inpt ot outpatient treatment programs)?: No Have you ever Experienced Blackouts?: No Have you ever Combined Alcohol with other Downers within the last 90 days?: No Have you ever Combined Alcohol with any other Substance of Abuse during the last 90 days?: No Positive Blood Alcohol level on Presentation? [PCS.BAL]: No Result: 0
[2021-11-14] MEDS: Normal Saline 1,000 ML 500 ML IV (11:52)
[2021-11-14 11:54] LABS: HGB 10.7 g/dL (11.2-15.7); MCH 29.7 pg (27.0-33.0); MCHC 33.4 % (32.0-36.0); MCV 89 fL (80-95); MPV 9.7 fL (8.0-11.0); Platelet Count 339 10^3/uL (130-400); RDW 13.2 % (11.7-14.6); RDW-SD 43.2 fL
[2021-11-14] MEDS: CEFEPIME 2 GM in Normal Saline 100 ML IVPB (11:54)
[2021-11-14] MEDS: Ondansetron 4 MG/2 ML VIAL IVP (11:54)
[2021-11-14 12:15] LABS: ALT 19 U/L (14-59); AST 15 U/L (15-37); Albumin 2.7 g/dL (3.4-5.0); Alkaline Phosphatase 135 U/L (46-116); BUN 12 mg/dL (7-18); Bilirubin, Total 0.5 mg/dL (0.2-1.0); CREATININE 0.8 mg/dL (0.55-1.02); Calcium 9.3 mg/dL (8.5-10.1); Chloride 96 mmol/L (98-107); Glucose 97 mg/dL (74-106); Potassium 3.4 mmol/L (3.5-5.1); Sodium 133 mmol/L (136-145); Total Protein 6.9 g/dL (6.4-8.2)
[2021-11-14 12:22] LABS: Absolute Lymphocyte Count 1.75 10^3/uL (1.2-3.4); Absolute Neutrophil Count 13.36 10^3/uL (1.2-6.7); Atypical Lymphocytes % 1; Diff Comment Manual Differential; RBC Morphology Normal
--- NOTE | 2021-11-14 13:15 | DI.US_ITS ---
Exam(s) US RENAL EXAM: US RENAL CLINICAL HISTORY: UTI TECHNIQUE: Ultrasound performed using standard protocol. COMPARISON: No exams were available for comparison FINDINGS: Kidneys are normal in size and shape. There is no evidence of a renal mass, hydronephrosis, or nephr olithiasis. Urinary bladder was empty. Ureteral jets were noted bilaterally. IMPRESSION: Negative renal ultrasound. DATA REPOSITORY:
[2021-11-14 13:31] LABS: Source Nasal/Nares
[2021-11-14] MEDS: PIPERACILLIN/TAZO 3.375 GM in Normal Saline 50 ML IVPB ×2 (13:33→17:40)
[2021-11-14 13:35] LABS: Bilirubin Negative (Negative); Blood Trace-lysed (Negative); Clarity Clear (Clear); Glucose Negative (Negative); Ketones 80 mg/dL (Negative); Leukocyte Esterase Negative (Negative); Nitrite Negative (Negative); Urobilinogen 0.2 EU/dL (Up TO 0.2)
--- NOTE | 2021-11-14 13:40 | NUR.NOTE ---
Nursing Note: Pt to U/S for ordered exam. Pt reports no nausea and decreased abd pain at this time. Covid swab done, pending admission.
[2021-11-14 13:43] LABS: Bacteria Negative HPF (Negative); C & S Indicated? No; Casts Negative LPF (Negative); Crystals Negative HPF (Negative); Epithelial Cells Few HPF (Negative); Mucus Negative (Negative); RBC 0-2 HPF (0-2); WBC Negative HPF (0-5)
[2021-11-14 14:22] LABS: COVID-19 PCR Negative (Negative)
[2021-11-14] MEDS: Acetaminophen 325 MG TAB PO (14:29)
[2021-11-14] MEDS: Enoxaparin 40 MG/0.4 ML SYR SC (14:30)
[2021-11-14] MEDS: Lactated Ringers 1,000 ML 100 ML IV (14:30)
--- NOTE | 2021-11-14 18:10 | HPE_ITS ---
Date of service: 11/14/21 Time of Service: 18:10 Assessment and Plan Assessment and plan (1) Sepsis: Status: Acute Assessment and plan: Await blood cultures. Given h/o ESBL, will trial zosyn while awaiting urine culture sensitivities. IVF. (2) E. coli UTI: Status: Acute Assessment and plan: As above. US renal negative for stones or obstructive uropathy. (3) Dehydration: Status: Acute Assessment and plan: Hold diuretics. IVF overnight. (4) Adverse effect of nitrofurantoin: Status: Acute Assessment and plan: I suspect that nausea, vomiting, and diarrhea that the patient experienced are side effects of nitrofurantoin. Will document as such (5) Hypokalemia: Assessment and plan: Acute on chronic. Replete. Check magnesium. (6) DVT prophylaxis: Status: Acute Assessment and plan: Sc enoxaparin (7) Discharge planning issues: Status: Acute Assessment and plan: DNR/DNI as per my conversation with the patient. The patient's is bringing in her Advanced Directives. Admit to medical surgical floor History of Present Illness History of Present Illness Chief Complaint: Fever, n/v, diarrhea Narrative: Ms Bell is a 75 year old female with PMHx of ESBL E. Coli UTI in 11/03, hypertension, GERD, iron deficiency anemia, diagnosed with a UTI on her [facility] ER visit on 11/12/21 (presented with 4 days of headache, dysuria improved on azo, back pain, abdominal pain, discharged home on nitrofurantoin), who presented to [facility] ED today with a fever, nausea, vomiting, and diarrhea which started after initiation of nitrofurantion. She received IVF and cefepime in the ED. She feels a little bit better now, but still a little nauseated, but tolerating PO. Her urine C&S is growing E. Coli, but we do no yet have sensitivities. Hospitalist admission was requested. Review of Systems All systems reviewed & are unremarkable except as noted in HPI and below PFSH All Active Problems (Updated 11/14/21 @ 19:19 by Misty Richter MD) Discharge planning issues (Acute) DVT prophylaxis (Acute) Dehydration (Acute) Adverse effect of nitrofurantoin (Acute) Sepsis (Acute) E. coli UTI (Acute) Acute UTI (Acute) Medical History (Updated 11/14/21 @ 19:19 by Misty Richter MD) Chronic edema GERD (gastroesophageal reflux disease) History of ESBL E. coli infection Hypertension Hypokalemia Iron deficiency anemia Uterine cancer Surgical History (Updated 11/14/21 @ 19:16 by Misty Richter MD) H/O total hysterectomy with bilateral salpingo-oophorectomy (BSO) H/O tubal ligation History of appendectomy S/p bilateral shoulder joint replacement Family History (Updated 11/14/21 @ 19:18 by Misty Richter MD) Mother Cancer breast Brother Cancer colorectal cancer Father Cancer metastatic cancer of unknown primary Social History Smoking/Tobacco Use Status: Never Smoking risk assessment performed?: Yes Alcohol Intake: current Alcohol Intake frequency: a few times a week Drug use: Never Substance use type: does not use Do you feel safe at home: Yes Do you feel safe in your relationship?: Yes Meds Allergies and Home Medications Allergies Allergy/AdvReac Type Severity Reaction Status Date / Time lisinopril AdvReac Other (See Unverified 11/14/21 11:14 Comment) nitrofurantoin AdvReac Severe Other (See Uncoded 11/14/21 18:24 Comment) Home Medications Medication Instructions Recorded Confirmed Type atorvastatin 20 mg tablet 20 mg PO QHS 11/12/21 11/14/21 History bupropion HCl 150 mg 24 hr tablet, 150 mg PO DAILY 11/12/21 11/14/21 History extended release calcium carb and lactate 200 1 tab PO DAILY 11/12/21 11/14/21 History mg-vitamin D3 6.25 mcg (250 unit) tablet celecoxib 100 mg capsule 100 mg PO DAILY 11/12/21 11/14/21 History chlorthalidone 25 mg tablet 25 mg PO DAILY 11/12/21 11/14/21 History citalopram 40 mg tablet 40 mg PO DAILY 11/12/21 11/14/21 History ferrous gluconate 324 mg (38 mg 324 mg PO DAILY 11/12/21 11/14/21 History iron) tablet gabapentin 800 mg tablet 800 mg PO TID 11/12/21 11/14/21 History losartan 100 mg tablet 100 mg PO DAILY 11/12/21 11/14/21 History magnesium 200 mg tablet 400 mg PO DAILY 11/12/21 11/14/21 History mecobalamin (vitamin B12) 1,000 1,000 mcg PO DAILY 11/12/21 11/14/21 History mcg chewable tablet (B12 Active) nitrofurantoin 100 mg PO Q12H 7 days #14 caps 11/12/21 11/14/21 Rx monohydrate/macrocrystals 100 mg capsule (Macrobid) omega-3 fatty acids-fish oil 340 1 cap PO BID 11/12/21 11/14/21 History mg-1,000 mg capsule (Fish Oil) omeprazole 20 mg capsule,delayed 20 mg PO DAILY 11/12/21 11/14/21 History release potassium chloride 20 mEq 20 meq PO DAILY 11/12/21 11/14/21 History tablet,extended release Exam Narrative Exam Narrative: General: Pleasant obese female who is occasionally dry heaving, A&Ox3, looks dehydrated Neurological: A&Ox3, no focal deficits Psychiatric: Appropriate speech pattern/content Skin: Visible skin dry, intact HEENT: Atraumatic, normocephalic, EOMI, dry MM, clear oropharynx, no submandib ular or cervical lymphadenopathy, no goiter or JVD Cardiovascular: RRR, no m/r/g Lungs: CTAB Gastrointestinal: soft, nontender, nondistended Genitourinary: deferred Extremities: bilateral lower extremity edema, symmetric, 2+ pedal pulses Results Imaging Additional studies: US renal: Negative renal ultrasound. Labs Result diagrams: 11/14/21 11:45 11/14/21 11:45 Labs: Laboratory Results - last 24 hr 11/14/21 11/14/21 11/14/21 11:45 11:45 11:45 WBC 15.90 H RBC 3.60 L Hgb 10.7 L Hct 32.0 L MCV 89 MCH 29.7 MCHC 33.4 RDW 13.2 Plt Count 339 MPV 9.7 Immature Gran % 0.0 Neutrophils % 84.0 Lymphocytes % 10.0 Atypical Lymphs % 1 Monocytes % 5.0 Eosinophils % 0.0 Basophils % 0.0 Nucleated RBC % 0.0 Absolute Neutrophils 13.36 H Absolute Lymphocytes 1.75 Absolute Monocytes 0.80 Absolute Eosinophils 0.00 Absolute Basophils 0.00 RBC Morphology Normal VBG Lactate 1.0 Sodium 133 L Potassium 3.4 L Chloride 96 L Carbon Dioxide 24.0 Anion Gap 13.0 H BUN 12 Creatinine 0.8 Estimated GFR/1.73 m2 >= 60.00 Glucose 97 Calcium 9.3 Total Bilirubin 0.5 AST 15 ALT 19 Alkaline Phosphatase 135 H Total Protein 6.9 Albumin 2.7 L Urine Color Urine Clarity Urine pH Ur Specific [place] Urine Protein Urine Ketones Urine Blood Urine Nitrite Urine Bilirubin Urine Urobilinogen Ur Leukocyte Esterase Urine RBC Urine WBC Ur Epithelial Cells Urine Crystals Urine Bacteria Urine Casts Urine Mucus Ur Culture Indicated? Urine Glucose COVID-19 Source SARS-CoV-2 (PCR) Influenza Type A (PCR) Influenza Type B (PCR) RSV (PCR) 11/14/21 11/14/21 11/14/21 13:15 13:15 13:20 WBC RBC Hgb Hct MCV MCH MCHC RDW Plt Count MPV Immature Gran % Neutrophils % Lymphocytes % Atypical Lymphs % Monocytes % Eosinophils % Basophils % Nucleated RBC % Absolute Neutrophils Absolute Lymphocytes Absolute Monocytes Absolute Eosinophils Absolute Basophils RBC Morphology VBG Lactate Sodium Potassium Chloride Carbon Dioxide Anion Gap BUN Creatinine Estimated GFR/1.73 m2 Glucose Calcium Total Bilirubin AST ALT Alkaline Phosphatase Total Protein Albumin Urine Color Yellow Urine Clarity Clear Urine pH 6.0 Ur Specific [place] 1.020 Urine Protein Negative Urine Ketones 80 H Urine Blood Trace-lysed H Urine Nitrite Negative Urine Bilirubin Negative Urine Urobilinogen 0.2 Ur Leukocyte Esterase Negative Urine RBC 0-2 Urine WBC Negative Ur Epithelial Cells Few Urine Crystals Negative Urine Bacteria Negative Urine Casts Negative Urine Mucus Negative Ur Culture Indicated? No Urine Glucose Negative COVID-19 Source Cancelled Nasal/Nares SARS-CoV-2 (PCR) Cancelled Negative Influenza Type A (PCR) Cancelled Influenza Type B (PCR) Cancelled RSV (PCR) Cancelled Last Vital Signs Temp 38.2 C H 11/14/21 14:41 Pulse 88 11/14/21 14:41 Resp 20 11/14/21 14:41 BP 116/75 11/14/21 14:41 Pulse Ox 95 11/14/21 14:41 PAWSS Have you Been Recently Intoxicated or Drunk Within the Last 30 days?: No Have you Ever Experienced Previous Episodes of Alcohol Withdrawal?: No Have you ever Experienced Withdrawal Seizures?: No Have you ever Experienced Delirium Tremens(DT)s?: No Have you ever undergone Alcohol Rehabilitation Treatment (i.e, inpt ot outpatient treatment programs)?: No Have you ever Experienced Blackouts?: No Have you ever Combined Alcohol with other Downers within the last 90 days?: No Have you ever Combined Alcohol with any other Substance of Abuse during the last 90 days?: No Positive Blood Alcohol level on Presentation? [PCS.BAL]: No Result: 0
[2021-11-14] MEDS: POTASSIUM CHLORIDE 20 MEQ/100 ML BAG 50 MEQ IVPB ×2 (19:43→22:35)
[2021-11-14] MEDS: Ketorolac 15 MG/ML VIAL IVP (19:44)
[2021-11-14] MEDS: Normal Saline Flush 10 ML SYR IVP (19:46)
[2021-11-14] MEDS: Omega-3 Fatty Acids 1000 MG CAP PO (19:46)
[2021-11-14] MEDS: Gabapentin 800 MG TAB PO (21:14)
[2021-11-14] MEDS: Atorvastatin 20 MG TAB PO (22:35)
[2021-11-15 00:44] VITALS: TEMP 37.6
[2021-11-15] MEDS: Normal Saline Flush 10 ML SYR IVP ×2 (02:58→17:29)
[2021-11-15] MEDS: PIPERACILLIN/TAZO 3.375 GM in Normal Saline 50 ML IVPB ×3 (02:58→17:29)
[2021-11-15 03:05] VITALS: BP 117/71; PULSE 78; RESP 16; TEMP 36.7; O2SAT 94
[2021-11-15 06:22] LABS: Abs Immature Grans 0.05 10^3/uL (0.0-0.06); Absolute Basophil Count 0.04 10^3/uL (0.0-0.2); Absolute Eosinophil Count 0.13 10^3/uL (0.0-0.7); Absolute Lymphocyte Count 1.64 10^3/uL (1.2-3.4); Absolute Neutrophil Count 7.74 10^3/uL (1.2-6.7); Basophils % 0.4; Eosinophils % 1.2; HCT 29.7 % (36.0-46.0); Immature Grans % 0.5; MCHC 33.7 % (32.0-36.0); MCV 89 fL (80-95); MPV 9.8 fL (8.0-11.0); Monocytes % 11.9; Platelet Count 335 10^3/uL (130-400); RBC 3.33 10^6/uL (3.93-5.22); RDW 13.9 % (11.7-14.6); RDW-SD 45.5 fL
[2021-11-15 06:41] LABS: Anion Gap 7.8 mmol/L (3-11); BUN 14 mg/dL (7-18); CO2 26.2 mmol/L (21.0-32.0); CREATININE 0.7 mg/dL (0.55-1.02); Calcium 8.8 mg/dL (8.5-10.1); Chloride 100 mmol/L (98-107); Glucose 92 mg/dL (74-106); Magnesium 1.7 mg/dL (1.8-2.4); Potassium 3.5 mmol/L (3.5-5.1); Sodium 134 mmol/L (136-145)
[2021-11-15 07:12] LABS: C-Reactive Protein > 25.00 mg/dL (0.0-0.3)
[2021-11-15] MEDS: Ferrous Gluconate 324 MG TAB PO (07:40)
[2021-11-15] MEDS: Cyanocobalamin 500 MCG TAB 1000 MCG PO (07:40)
[2021-11-15] MEDS: Losartan 50 MG TAB 100 MG PO (07:40)
[2021-11-15] MEDS: Potassium Chloride 10 MEQ CAPCR 20 MEQ PO (07:40)
[2021-11-15] MEDS: buPROPion-XL 150 MG TABCR PO (07:40)
[2021-11-15] MEDS: Omega-3 Fatty Acids 1000 MG CAP PO ×2 (07:41→20:18)
[2021-11-15] MEDS: Celecoxib 100 MG CAP PO (07:41)
[2021-11-15] MEDS: Citalopram 20 MG TAB 40 MG PO (07:41)
[2021-11-15] MEDS: Calcium 600mg/Vit D 200U TAB 1 TAB PO (07:41)
[2021-11-15] MEDS: Magnesium Oxide 400 MG TAB PO (07:41)
[2021-11-15] MEDS: Omeprazole 20 MG CAPCR PO (07:41)
[2021-11-15 07:44] VITALS: BP 154/69; PULSE 81; RESP 18; TEMP 37.2; O2SAT 93
[2021-11-15] MEDS: Gabapentin 800 MG TAB PO ×3 (09:24→20:18)
[2021-11-15] MEDS: MAGNESIUM SULFATE 2 GM/50 ML BAG IVPB (10:59)
[2021-11-15 11:15] LABS: C Diff PCR Negative (Negative)
[2021-11-15] MEDS: Potassium Chloride 20 MEQ TABCR PO ×2 (11:54→17:29)
[2021-11-15] MEDS: Enoxaparin 40 MG/0.4 ML SYR SC (13:25)
--- NOTE | 2021-11-15 14:52 | PDOC.CMIN ---
- If Service Date Differs Date of service: 11/15/21 Time of Service: 14:52 Care Management Initial Assess REASON FOR HOSPITALIZATION:: Sepsis, ESBL, UTI PAST MEDICAL HISTORY/PAST SURGICAL HISTORY:: All Active Problems. Discharge planning issues (Acute). DVT prophylaxis (Acute). Dehydration (Acute). Adverse effect of nitrofurantoin (Acute). Sepsis (Acute). E. coli UTI (Acute). Acute UTI (Acute). Medical History. Chronic edema. GERD (gastroesophageal reflux disease). History of ESBL E. coli infection. Hypertension. Hypokalemia. Iron deficiency anemia. Uterine cancer. Surgical History. H/O total hysterectomy with bilateral salpingo-oophorectomy (BSO). H/O tubal ligation. History of appendectomy. S/p bilateral shoulder joint replacement PREVIOUS FUNCTIONAL STATUS/SOCIAL/FAMILY SUPPORTS:: Louise lives in [place] with her , Brandt. They have three adult sons, two of which live nearby. They have seven grand children and eight great grand children. Sparkle is independent with ADL's at baseline. CURRENT FUNCTIONAL STATUS:: Sparkle was sitting up in a chair when CM met with her. Her was by her side. Sparkle stated that per MD, she would likely remain at [facility] for a couple days. She reported that she was on oral antibiotics at home, and failed that treatment. Per report, MD is awaiting blood cultures to determine antibiotic therapy. She is on IV abx and IV fluids currently. CM will continue to follow. ADVANCE DIRECTIVES:: Not on file. Has patient been provided with info about the portal/API?: Yes Did the patient sign up for the portal?: No CODE STATUS:: DNR/DNI INSURANCE COVERAGE / FINANCIAL ISSUES:: [facility]/ [employer]- Plan C CURRENT HOME/COMMUNITY SERVICES/EQUIPMENT:: No current services or equipment. PRIMARY CARE PHYSICIAN:: Mira Davies POTENTIAL DISCHARGE NEEDS:: Evaluations for further needs, follow up appointments. PATIENT/FAMILY EDUCATION NEEDS:: Review discharge instructions and limitations, discussion of self care needs including ask Me three. ANTICIPATED BARRIERS TO DISCHARGE:: None identified at this time. TRANSPORTATION:: Via private vehicle by family. PLAN:: Anticipate Louise will return home once medically cleared. She will be driven home via private vehicle by family. She will follow up with her PCP and discharge plan of care. CM will continue to follow.
[2021-11-15 15:02] VITALS: BP 106/67; PULSE 65; RESP 18; TEMP 36.5; O2SAT 95
--- NOTE | 2021-11-15 15:19 | W.PM.PROGNOT ---
Date of Service Date of service: 11/15/21 Time of Service: 15:20 Assessment and Plan Assessment and plan (1) Sepsis: Status: Acute Assessment and plan: blood cultures negative to date Given h/o ESBL, continue zosyn day 2 while awaiting urine culture sensitivities. . (2) E. coli UTI: Status: Acute Assessment and plan: As above. US renal negative for stones or obstructive uropathy. (3) Dehydration: Status: Resolved Assessment and plan: Hold diuretics. given IVF (4) Adverse effect of nitrofurantoin: Status: Acute Assessment and plan: suspected that nausea, vomiting, and diarrhea that the patient experienced are side effects of nitrofurantoin. Will document as such (5) Hypokalemia: Assessment and plan: Acute on chronic. Replete K and magnesium. (6) DVT prophylaxis: Status: Acute Assessment and plan: Sc enoxaparin (7) Discharge planning issues: Status: Acute Assessment and plan: anticipate discharge to home when medically stable. discussed with Dr Richter Subjective Subjective Patient reports: no new complaints, feels better, tolerating liquids well, tolerating a regular diet and afebrile; denies shortness of breath Exam Const General: cooperative, healthy appearing, comfortable and no acute distress Orientation: alert and awake HENMT Head: normal to inspection, normocephalic and atraumatic Eyes Conjunctivae: conjunctivae normal Neck Neck: normal visual inspection and supple Resp Effort & Inspection: normal respiratory effort and able to speak in complete sentences Auscultation: clear to auscultation bilaterally Cardio Rate: regular rate Rhythm: regular rhythm GI Palpation: soft and nontender Auscultation: normal bowel sounds Back/Spine/Pelvis Back: no CVA tenderness Skin General skin exam: no rashes or lesions noted Neuro General: patient alert, patient awake, moves all extremities and no focal motor deficits Psych Appearance: grossly normal Mental Status: mental status grossly normal Objective Last Vital Signs Temp 36.5 C 11/15/21 15:02 Pulse 65 11/15/21 15:02 Resp 18 11/15/21 15:02 BP 106/67 11/15/21 15:02 Pulse Ox 95 11/15/21 15:02 Laboratory Results - last 24 hr 11/15/21 11/15/21 11/15/21 05:48 05:48 10:20 WBC 10.90 H RBC 3.33 L Hgb 10.0 L Hct 29.7 L MCV 89 MCH 30.0 MCHC 33.7 RDW 13.9 Plt Count 335 MPV 9.8 Immature Gran % 0.5 Neutrophils % 71.0 Lymphocytes % 15.0 Monocytes % 11.9 Eosinophils % 1.2 Basophils % 0.4 Nucleated RBC % 0.0 Absolute Neutrophils 7.74 H Absolute Lymphocytes 1.64 Absolute Monocytes 1.30 H Absolute Eosinophils 0.13 Absolute Basophils 0.04 Sodium 134 L Potassium 3.5 Chloride 100 Carbon Dioxide 26.2 Anion Gap 7.8 BUN 14 Creatinine 0.7 Estimated GFR/1.73 m2 >= 60.00 Glucose 92 Calcium 8.8 Magnesium 1.7 L C-Reactive Protein > 25.00 H Stl C.difficile Tox PCR Negative PAWSS Have you Been Recently Intoxicated or Drunk Within the Last 30 days?: No Have you Ever Experienced Previous Episodes of Alcohol Withdrawal?: No Have you ever Experienced Withdrawal Seizures?: No Have you ever Experienced Delirium Tremens(DT)s?: No Have you ever undergone Alcohol Rehabilitation Treatment (i.e, inpt ot outpatient treatment programs)?: No Have you ever Experienced Blackouts?: No Have you ever Combined Alcohol with other Downers within the last 90 days?: No Have you ever Combined Alcohol with any other Substance of Abuse during the last 90 days?: No Positive Blood Alcohol level on Presentation? [PCS.BAL]: No Result: 0
[2021-11-15] MEDS: Atorvastatin 20 MG TAB PO (20:18)
[2021-11-15 23:35] VITALS: BP 129/76; PULSE 85; RESP 18; TEMP 37.2; O2SAT 96
[2021-11-16] MEDS: PIPERACILLIN/TAZO 3.375 GM in Normal Saline 50 ML IVPB ×2 (01:33→10:02)
[2021-11-16] MEDS: Normal Saline Flush 10 ML SYR IVP ×2 (01:33→10:03)
[2021-11-16 06:16] LABS: Abs Immature Grans 0.05 10^3/uL (0.0-0.06); Absolute Basophil Count 0.05 10^3/uL (0.0-0.2); Absolute Eosinophil Count 0.25 10^3/uL (0.0-0.7); Absolute Lymphocyte Count 1.68 10^3/uL (1.2-3.4); Absolute Monocyte Count 1.11 10^3/uL (0.1-0.8); Absolute Neutrophil Count 5.85 10^3/uL (1.2-6.7); Basophils % 0.6; Eosinophils % 2.8; HCT 30.4 % (36.0-46.0); HGB 9.8 g/dL (11.2-15.7); Immature Grans % 0.6; Lymphocytes % 18.7; MCH 29.1 pg (27.0-33.0); MCHC 32.2 % (32.0-36.0); MCV 90 fL (80-95); MPV 9.6 fL (8.0-11.0); Monocytes % 12.3; Platelet Count 380 10^3/uL (130-400); RBC 3.37 10^6/uL (3.93-5.22); RDW 13.8 % (11.7-14.6); RDW-SD 45.1 fL; WBC 8.99 10^3/uL (4.4-10.8)
[2021-11-16 06:31] LABS: Anion Gap 6.4 mmol/L (3-11); BUN 9 mg/dL (7-18); C-Reactive Protein 21.66 mg/dL (0.0-0.3); CO2 28.6 mmol/L (21.0-32.0); CREATININE 0.7 mg/dL (0.55-1.02); Chloride 101 mmol/L (98-107); Glucose 97 mg/dL (74-106); Magnesium 1.8 mg/dL (1.8-2.4); Potassium 3.9 mmol/L (3.5-5.1); Sodium 136 mmol/L (136-145)
[2021-11-16 08:04] VITALS: BP 120/78; PULSE 68; RESP 14; TEMP 37.3; O2SAT 96
[2021-11-16] MEDS: Celecoxib 100 MG CAP PO (08:46)
[2021-11-16] MEDS: Calcium 600mg/Vit D 200U TAB 1 TAB PO (08:46)
[2021-11-16] MEDS: Ferrous Gluconate 324 MG TAB PO (08:46)
[2021-11-16] MEDS: buPROPion-XL 150 MG TABCR PO (08:46)
[2021-11-16] MEDS: Omega-3 Fatty Acids 1000 MG CAP PO (08:46)
[2021-11-16] MEDS: Losartan 50 MG TAB 100 MG PO (08:46)
[2021-11-16] MEDS: Potassium Chloride 20 MEQ TABCR PO ×2 (08:47→12:29)
[2021-11-16] MEDS: Magnesium Oxide 400 MG TAB PO (08:47)
[2021-11-16] MEDS: Omeprazole 20 MG CAPCR PO (08:47)
[2021-11-16] MEDS: Gabapentin 800 MG TAB PO (08:47)
[2021-11-16] MEDS: Cyanocobalamin 500 MCG TAB 1000 MCG PO (08:47)
[2021-11-16] MEDS: Citalopram 20 MG TAB 40 MG PO (08:47)
--- NOTE | 2021-11-16 10:23 | DSE_ITS ---
Date of service: 11/16/21 Time of Service: 10:24 DS: Diagnosis Discharge Diagnosis (1) Sepsis: Status: Acute (2) E. coli UTI: Status: Acute (3) Dehydration: Status: Resolved (4) Adverse effect of nitrofurantoin: Status: Acute (5) Hypokalemia: Discharge Plan Disposition Patient Disposition: HOME Condition: Improving Discharge Details Reason For Visit: Sepsis,ESBL,UTI Admit Date/Time: 11/14/21 13:19 Admit Provider: Misty Richter Attending Provider: Misty Richter Primary Care Provider: Mira Davies Hospital Course Hospital Course: This is a 75 year old female with past medical history of ESBL E. Coli UTI, hypertension, GERD, iron deficiency anemia, diagnosed with a UTI on her [facility] ER visit on 11/12/21 (presented with 4 days of headache, dysuria improved on azo, back pain, abdominal pain, discharged home on nitrofurantoin), who presented to [facility] ED with a fever, nausea, vomiting, and diarrhea which started after initiation of nitrofurantoin.? She received IV fluids and cefepime in the ED. Her urine C&S From the prior ER visit is growing E. Coli resistant previously to cephalosporins (ESBL). She was changed to zosyn. On this admission, however, her UA was negative. Her symptoms have resolved. It is thought that her presenting symptoms were due to a reaction to nitrofurantoin rather than due to the persistent UTI. Nitrofurantoin was added to her allergy profile. Her blood cultures remained negative. urine cleared of infection. Her CRP elevated and thought to be response to drug reaction. it is normalizing. She has no further symptoms and tolerating a regular diet. She was given one dose of fosfomycin and is being discharged on no further antibiotics or med changes. of note magnesium and potassium were repleted. discharged home with no services. she will have labs checked next Thursday October 21, 2021. discharge discussed with Dr Richter Home Meds and New Rx's Prescriptions: Continued atorvastatin 20 mg Tablet 20 mg PO QHS citalopram 40 mg Tablet 40 mg PO DAILY chlorthalidone 25 mg Tablet 25 mg PO DAILY gabapentin 800 mg Tablet 800 mg PO TID omeprazole 20 mg Capsule,Delayed Release(Dr/Ec) 20 mg PO DAILY celecoxib 100 mg Capsule 100 mg PO DAILY losartan 100 mg Tablet 100 mg PO DAILY magnesium 200 mg Tablet 400 mg PO DAILY bupropion HCl 150 mg Tablet Extended Release 24 Hr 150 mg PO DAILY Fish Oil 340-1,000 mg Capsule 1 cap PO BID ferrous gluconate 324 mg (38 mg iron) Tablet 324 mg PO DAILY calcium carb,lactat-vitamin D3 200 mg-6.25 mcg (250 unit) Tablet 1 tab PO DAILY potassium chloride 20 mEq Tablet Extended Release 20 meq PO DAILY B12 Active 1,000 mcg Tablet,Chewable 1,000 mcg PO DAILY Discontinued nitrofurantoin monohyd/m-cryst [Macrobid] 100 mg capsule 100 mg PO Q12H 7 Days Qty: 14 0RF Rx Instructions: must administer with a meal/food Discharge Instructions Instructions: Urinary Tract Infection in Women (DC) Stand Alone Forms: Nursing Discharge Form Referrals: Mira Davies [Primary Care Provider] - 11/29/21 9:45 am Activity:: Activity as Tolerated Equipment/Supplies:: No Equipment Needed Diet:: As Tolerated Discharge Orders Discharge Orders: Discharge Order (Routine); Ordered 11/16/21 Ordered By: Eli Montalvo Other Ambulatory Orders: Basic Metabolic Panel (Routine) Timeframe: 20211121 Location: None Selected Ordered By: Eli Montalvo Complete Blood Count w/Diff (Routine) Timeframe: 20211121 Location: None Selected Ordered By: Eli Montalvo Magnesium (Routine) Location: None Selected Ordered By: Eli Montalvo C-Reactive Protein (Routine) Timeframe: 20211121 Location: None Selected Ordered By: Eli Montalvo DS: Summary Time Spent with Patient providing and/or coordinating discharge services: Less than 30 minutes Status at Discharge Functional status at discharge: independent ambulation Overall status at discharge: patient is progressing back to baseline Mental Status: mental status grossly normal Speech and Movement: speech and movement normal Mood: congruent mood Affect: normal affect Exam Const General: cooperative, healthy appearing, comfortable and no acute distress Orientation: alert and awake [facility] [place] Head: normal to inspection, normocephalic and atraumatic Eyes Conjunctivae: conjunctivae normal Neck Neck: normal visual inspection and supple Resp Effort & Inspection: normal respiratory effort and able to speak in complete sentences Auscultation: clear to auscultation bilaterally Cardio Rate: regular rate Rhythm: regular rhythm GI Palpation: soft and nontender Auscultation: normal bowel sounds Back/Spine/Pelvis Back: no CVA tenderness Skin General skin exam: no rashes or lesions noted Neuro General: patient alert, patient awake, moves all extremities and no focal motor deficits Psych Appearance: grossly normal Mental Status: mental status grossly normal Speech and Movement: speech and movement normal Mood: congruent mood Affect: normal affect DS: Data Vitals/I&O Vitals and I&O: Vital Signs Temperature 37.3 C 11/16/21 08:04 Temperature Source Tympanic 11/16/21 08:04 Pulse 68 11/16/21 08:04 Pulse Rhythm Regular 11/16/21 08:04 Respiratory Rate 14 11/16/21 08:04 Respiratory Effort 11/16/21 08:04 Respiratory Depth Normal 11/16/21 08:04 Respiratory Pattern Normal 11/16/21 08:04 Blood Pressure 120/78 11/16/21 08:04 Blood Pressure Position Sitting 11/14/21 11:12 Pulse Oximetry 96 11/16/21 08:04 Oxygen Delivery Method Room Air 11/16/21 08:04 Oxygen Flow Rate 0 11/16/21 08:04 Pain Level 3 11/16/21 08:04 Intake & Output 11/15/21 11/15/21 11/16/21 11:59 23:59 11:59 Intake Total 1190.000 / 2180.000 990 / 2180.000 50 / 50 Output Total 1050 / 1850 800 / 1850 1200 / 1200 Balance 140.000 / 330.000 190 / 330.000 -1150 / -1150 Weight 89.6 kg 88.8 kg Intake: IV 790.000 / 940.000 150 / 940.000 50 / 50 Oral 400 / 1240 840 / 1240 Output: Urine 1050 / 1850 800 / 1850 1200 / 1200 Other: Urine Color Yellow Yellow Straw Urine Appearance Clear Clear Clear Urine Odor None Normal Comment Patient brought to bathroom by staff, undocumented amount voided. Stool Size Small Moderate Moderate Stool Characteristics Liquid Soft Liquid Voiding Methods Toilet Toilet Toilet Data Completed and Pending Labs on day of discharge: Labs from last 24 hours 11/16/21 11/16/21 11/15/21 05:23 05:23 10:20 WBC 8.99 RBC 3.37 L Hgb 9.8 L Hct 30.4 L MCV 90 MCH 29.1 MCHC 32.2 RDW 13.8 Plt Count 380 MPV 9.6 Immature Gran % 0.6 Neutrophils % 65.0 Lymphocytes % 18.7 Monocytes % 12.3 Eosinophils % 2.8 Basophils % 0.6 Nucleated RBC % 0.0 Absolute Neutrophils 5.85 Absolute Lymphocytes 1.68 Absolute Monocytes 1.11 H Absolute Eosinophils 0.25 Absolute Basophils 0.05 Sodium 136 Potassium 3.9 Chloride 101 Carbon Dioxide 28.6 Anion Gap 6.4 BUN 9 Creatinine 0.7 Estimated GFR/1.73 m2 >= 60.00 Glucose 97 Calcium 9.0 Magnesium 1.8 C-Reactive Protein 21.66 H Stl C.difficile Tox PCR Negative Preliminary micro results at discharge 11/14/21 11:45 Blood Culture - Preliminary Blood NO GROWTH 24 HOURS 11/14/21 11:45 Blood Culture - Preliminary Blood NO GROWTH 24 HOURS PFSH All Active Problems (Updated 11/16/21 @ 11:18 by Eli Montalvo NP) Hypomagnesemia (Acute) Discharge planning issues (Acute) DVT prophylaxis (Acute) Adverse effect of nitrofurantoin (Acute) Sepsis (Acute) E. coli UTI (Acute) Acute UTI (Acute) Medical History (Updated 11/16/21 @ 11:18 by Eli Montalvo NP) Chronic edema GERD (gastroesophageal reflux disease) History of ESBL E. coli infection Hypertension Hypokalemia Iron deficiency anemia Uterine cancer Surgical History (Updated 11/14/21 @ 19:16 by Misty Richter MD) H/O total hysterectomy with bilateral salpingo-oophorectomy (BSO) H/O tubal ligation History of appendectomy S/p bilateral shoulder joint replacement Family History (Updated 11/14/21 @ 19:18 by Misty Richter MD) Mother Cancer breast Brother Cancer colorectal cancer Father Cancer metastatic cancer of unknown primary Social History Smoking/Tobacco Use Status: Never Smoking risk assessment performed?: Yes Alcohol Intake: current Alcohol Intake frequency: a few times a week Drug use: Never Substance use type: does not use Do you feel safe at home: Yes Do you feel safe in your relationship?: Yes
[2021-11-16] MEDS: Fosfomycin Tromethamine 3 GM PACKET PO (10:51)
[2021-11-16 12:25] VITALS: BP 96/67; PULSE 69; RESP 12; TEMP 37.5; O2SAT 98
--- NOTE | 2021-11-16 17:00 | PDOC.CMDIS ---
- If Service Date Differs Date of service: 11/16/21 Time of Service: 17:00 LACE Index Scoring Tool - Questions: Length of Stay (in days): 2 Acuity (Admit via E.D.?): Yes E.D. Visits: 2 - Answers: Total Score: 7 Risk of Readmission: Low Risk Care Management Discharge Reason for Hospitalization: Sepsis, ESBL, UTI Discharge Plan: Louise returned home with no new services today. Her was present for discharge and drove her home via private vehicle. She will follow up with her PCP and discharge plan of care. She is happy to be going home. Patient/Family Education Needs: Review discharge instructions and limitations, discussion of self care needs including ask me three.
== END 2021-11-16 13:48 | disposition home or self-care (01) | DRG 872 ==
LOC: ER 13:29 → MS 14:05
PROVIDERS: Admitting Provider Internal Medicine; Emergency Provider Physician Assistant; PCP Nurse Practitioner Family; Visit Provider Internal Medicine
DX: A41.9 Sepsis, unspecified organism (principal); N39.0 Urinary tract infection, site not specified; K52.1 Toxic gastroenteritis and colitis; Z16.12 Extended spectrum beta lactamase (ESBL) resistance; B96.20 Unspecified Escherichia coli [E. coli] as the cause of diseases classified elsewhere; E86.0 Dehydration; E83.42 Hypomagnesemia; E87.6 Hypokalemia; K21.9 Gastro-esophageal reflux disease without esophagitis; D50.9 Iron deficiency anemia, unspecified; I10 Essential (primary) hypertension; R11.2 Nausea with vomiting, unspecified; E78.00 Pure hypercholesterolemia, unspecified; T37.8X5A Adverse effect of other specified systemic anti-infectives and antiparasitics, initial encounter; Z66 Do not resuscitate; R60.0 Localized edema; Z85.42 Personal history of malignant neoplasm of other parts of uterus; Z96.612 Presence of left artificial shoulder joint; Z96.611 Presence of right artificial shoulder joint
CPT/HCPCS: 36415; 76770; 80048; 80053; 87040; 87493; 87635; 87637; 96361; 96365; 96367; 96372; 96375; 99285; J1650; 81003; 81015; 83605; 83735; 85025; 86140; 99223; 99233; 99239; J1885; J2405; J2543; J3480; J3490

== ENCOUNTER 2021-11-22 03:33 | Outpatient (CLI) | payer MEDICARE, OTHER, SELFPAY ==
[2021-11-22 13:28] LABS: Abs Immature Grans 0.07 10^3/uL (0.0-0.06); Absolute Basophil Count 0.08 10^3/uL (0.0-0.2); Absolute Eosinophil Count 0.27 10^3/uL (0.0-0.7); Absolute Lymphocyte Count 2.53 10^3/uL (1.2-3.4); Absolute Monocyte Count 0.72 10^3/uL (0.1-0.8); Absolute Neutrophil Count 4.86 10^3/uL (1.2-6.7); Basophils % 0.9; Eosinophils % 3.2; HCT 34.9 % (36.0-46.0); HGB 11.2 g/dL (11.2-15.7); Immature Grans % 0.8; Lymphocytes % 29.7; MCH 29.2 pg (27.0-33.0); MCHC 32.1 % (32.0-36.0); MCV 91 fL (80-95); MPV 8.9 fL (8.0-11.0); Monocytes % 8.4; Platelet Count 448 10^3/uL (130-400); RBC 3.83 10^6/uL (3.93-5.22); RDW 13.9 % (11.7-14.6); RDW-SD 46.5 fL; WBC 8.53 10^3/uL (4.4-10.8)
[2021-11-22 14:02] LABS: Anion Gap 7.7 mmol/L (3-11); BUN 15 mg/dL (7-18); C-Reactive Protein 1.45 mg/dL (0.0-0.3); CO2 30.3 mmol/L (21.0-32.0); CREATININE 1.1 mg/dL (0.55-1.02); Calcium 9.5 mg/dL (8.5-10.1); Chloride 103 mmol/L (98-107); Estimated GFR 48.29 (mL/min/1.73m2); Glucose 109 mg/dL (74-106); Magnesium 1.4 mg/dL (1.8-2.4); Potassium 4.1 mmol/L (3.5-5.1); Sodium 141 mmol/L (136-145)
== END 2021-11-22 03:34 | disposition home or self-care (01) ==
LOC: LBO 03:33
PROVIDERS: PCP Nurse Practitioner Family; Visit Provider Nurse Practitioner Acute Care
DX: E87.6 Hypokalemia (principal)
CPT/HCPCS: 36415; 80048; 83735; 85025; 86140

== ENCOUNTER 2021-11-29 11:20 | Outpatient (REF) | payer MEDICARE, OTHER, SELFPAY ==
[2021-11-29 16:10] LABS: Anion Gap 8.6 mmol/L (3-11); BUN 15 mg/dL (7-18); CO2 29.4 mmol/L (21.0-32.0); CREATININE 0.8 mg/dL (0.55-1.02); Calcium 9.1 mg/dL (8.5-10.1); Chloride 101 mmol/L (98-107); Glucose 101 mg/dL (74-106); Magnesium 1.6 mg/dL (1.8-2.4); Potassium 3.9 mmol/L (3.5-5.1); Sodium 139 mmol/L (136-145)
== END 2021-11-29 11:21 | disposition home or self-care (01) ==
LOC: NCHCN 11:20
PROVIDERS: PCP Nurse Practitioner Family; Visit Provider Nurse Practitioner Family
DX: I10 Essential (primary) hypertension (principal); E83.42 Hypomagnesemia
CPT/HCPCS: 80048; 83735

== ENCOUNTER → 2021-12-28 00:40 | Outpatient (CLI) | payer MEDICARE, OTHER, SELFPAY ==
--- NOTE | 2021-12-28 | DI.MRI_ITS ---
Exam(s) MR LOWER EXTREMITY RT WO/W EXAM: MR LOWER EXTREMITY RT WO/W CLINICAL HISTORY: HIP MASS R22.9 RT HIP TECHNIQUE: Multiplanar multisequence MRI was performed. Both pre and post contrast infused sequence s were performed. COMPARISON: Prior outside ultrasound was reviewed FINDINGS: MARROW:There is no evidence of fracture, bone contusion, nor avascular necrosis. There are no signif icant osseous lesions. No evidence of osteomyelitis. Degenerative subarticular cysts seen in the pagan perior aspect of ipsilateral hip acetabulum. MUSCLES: Is significant atrophy of the hamstrings muscle group in the posterior aspect of the thigh. Some increased signal is seen in the gluteus medius tendon region lateral to the greater trochanter. There is no abnormal intraosseous signal in the trochanter itself nor in the inter and subtrochanter ic regions. Also no abnormal signal in the ipsilateral femoral head and neck. EXTRAMUSCULAR SOFT TISSUES: In the subcutaneous fat over the lateral aspect of the hip and upper thig h there is an area of signal abnormality which extends over a cephalocaudal length of approximately 1 8 cm, and extending from the subcutaneous region down to the deep subcutaneous fat level but without abnormal signal in the subjacent musculature over the lateral aspect thigh. This area exhibits foci of signal dropout as well as enhancement. Most probably represents servando hematoma. OTHER: None. IMPRESSION: 1. Findings are most probably consistent with evolving prominent subcutaneous hematoma. 2. Diffuse atrophy of the hamstring muscle group noted. 3. DATA REPOSITORY:
[2021-12-28] MEDS: Normal Saline Flush 10 ML SYR IVP (13:56)
[2021-12-28] MEDS: Gadoterate meglumine 20 ML SYRINGE IVP (13:56)
== END ==
PROVIDERS: PCP Nurse Practitioner Family; Visit Provider Nurse Practitioner Family
DX: R22.41 Localized swelling, mass and lump, right lower limb (principal); S70.01XA Contusion of right hip, initial encounter; M62.551 Muscle wasting and atrophy, not elsewhere classified, right thigh
CPT/HCPCS: 73720

== ENCOUNTER 2022-09-04 17:23 | Outpatient (REF) | payer MEDICARE, SELFPAY ==
--- OUTSIDE RECORDS SUMMARY | 2022-09-04 17:27 | XMS_ITS | CCD ---
Author Name Unknown Address [address] [place] [address] [id number] Organization Unknown Address [address] [place] [address] [phone] Care Team Providers Care Rn Ambulatory Name Role Phone SIS PIZARRO Attending Physician [phone] Vital Signs Unknown or Not Available. Allergies Allergy Code Allergy Type Reaction Status LISINOPRIL 07314 Drug allergy COUGH Active Procedures Unknown or Not Available. History of Immunizations Unknown or Not Available. Problems Unknown or Not Available. Results Unknown or Not Available. Active Medications Unknown or Not Available. Medications Administered During Visit Unknown or Not Available. Encounters Encounter Diagnosis Diagnosis Code Start Date Encounter for screening mamm ogram for malignant neoplasm of breast [id number] 09/20/2021 Social History Smoking Status Code Start Date End Date Never smoker [id number] Patient Decision Aids Unknown or Not Available. Discharge Instructions You were admitted to on 09/20/2021 09:33 with a principal diagnosis of Encounter for screening mammogram for malignant neoplasm of breast You were discharged from on 09/20/2021 09:33 Should you have any questions prior to discharge, please contact a member of your healthcare team. If you have left the hospital and have any questions, please contact your primary care physician. Chief Complaint and Reason For Visit Chief Complaint Date of Onset SCREENING Function Status Unknown or Not Available. Plan of Care Unknown or Not Available. Referral/Transition of Care Unknown or Not Available.
--- OUTSIDE RECORDS SUMMARY | 2022-09-04 17:28 | XMS_ITS | CCD ---
Author Name Unknown Address [address] [place] [address] [id number] Organization Unknown Address [address] [place] [address] [phone] Care Team Providers Care Aircraft Air Conditioning Mechanic Name Role Phone SIS PIZARRO Attending Physician [phone] Vital Signs Unknown or Not Available. Allergies Allergy Code Allergy Type Reaction Status LISINOPRIL 73400 Drug allergy COUGH Active Procedures Unknown or Not Available. History of Immunizations Unknown or Not Available. Problems Unknown or Not Available. Results Unknown or Not Available. Active Medications Unknown or Not Available. Medications Administered During Visit Unknown or Not Available. Encounters Encounter Diagnosis Diagnosis Code Start Date Localized swelling, mass and lump, right upper l imb R2231 10/13/2021 Social History Smoking Status Code Start Date End Date Never smoker [id number] Patient Decision Aids Unknown or Not Available. Discharge Instructions You were admitted to [facility] on 10/13/2021 12:55 with a principal diagnosis of Localized swelling, mass and lump, right upper limb You were discharged from [facility] on 10/13/2021 12:55 Should you have any questions prior to discharge, please contact a member of your healthcare team. If you have left the hospital and have any questions, please contact your primary care physician. Chief Complaint and Reason For Visit Chief Complaint Date of Onset HIP MASS Function Status Unknown or Not Available. Plan of Care Unknown or Not Available. Referral/Transition of Care Unknown or Not Available.
--- OUTSIDE RECORDS SUMMARY | 2022-09-04 17:28 | XMS_ITS | CCD ---
Author Name Unknown Address [address] [place] [address] [id number] Organization Unknown Address [address] [place] [address] [phone] Care Team Providers Care Primary Teaching Assistant Name Role Phone STEVE GARCIA Attending Physician [phone] Vital Signs Unknown or Not Available. Allergies Allergy Code Allergy Type Reaction Status LISINOPRIL 47400 Drug allergy COUGH Active Procedures Unknown or Not Available. History of Immunizations Unknown or Not Available. Problems Unknown or Not Available. Results Unknown or Not Available. Active Medications Unknown or Not Available. Medications Administered During Visit Unknown or Not Available. Encounters Encounter Diagnosis Diagnosis Code Start Date Spinal stenosis, lumbar raymon on without neurogenic claudication [id number] 12/01/2020 Social History Smoking Status Code Start Date End Date Never smoker [id number] Patient Decision Aids Unknown or Not Available. Discharge Instructions You were admitted to [facility] on 12/01/2020 10:45 with a principal diagnosis of Spinal stenosis, lumbar region without neurogenic claudication You were discharged from [facility] on 01/05/2021 10:57 Should you have any questions prior to discharge, please contact a member of your healthcare team. If you have left the hospital and have any questions, please contact your primary care physician. Chief Complaint and Reason For Visit Unknown or Not Available. Function Status Unknown or Not Available. Plan of Care Unknown or Not Available. Referral/Transition of Care Unknown or Not Available.
--- OUTSIDE RECORDS SUMMARY | 2022-09-04 17:28 | XMS_ITS | CCD ---
Author Name Unknown Address [address] [place] [address] [phone] Organization Unknown Address [address] [place] [address] [phone] Care Team Providers Care Hay Buckler Name Role Phone SIS PIZARRO Attending Physician [phone] Vital Signs Unknown or Not Available. Allergies Allergy Code Allergy Type Reaction Status LISINOPRIL 51887 Drug allergy COUGH Active Procedures Unknown or Not Available. History of Immunizations Unknown or Not Available. Problems Unknown or Not Available. Results Unknown or Not Available. Active Medications Unknown or Not Available. Medications Administered During Visit Unknown or Not Available. Encounters Encounter Diagnosis Diagnosis Code Start Date Weakness R531 09/27/2021 Social History Smoking Status Code Start Date End Date Never smoker [id number] Patient Decision Aids Unknown or Not Available. Discharge Instructions You were admitted to [facility] on 09/27/2021 13:22 with a principal diagnosis of Weakness You were discharged from [facility] on 01/23/2022 14:07 Should you have any questions prior to [...]
--- OUTSIDE RECORDS SUMMARY | 2022-09-04 17:28 | XMS_ITS | CCD ---
Author Name Unknown Address [address] [place] [address] [id number] Organization Unknown Address [address] [place] [address] [phone] Care Team Providers Care Coil Shaper Name Role Phone SIS PIZARRO Attending Physician [phone] Vital Signs Unknown or Not Available. Allergies Allergy Code Allergy Type Reaction Status LISINOPRIL 58752 Drug allergy COUGH Active Procedures Unknown or Not Available. History of Immunizations Unknown or Not Available. Problems Unknown or Not Available. Results Unknown or Not Available. Active Medications Unknown or Not Available. Medications Administered During Visit Unknown or Not Available. Encounters Encounter Diagnosis Diagnosis Code Start Date Bone density finding [id number] 11/03/2021 Social History Smoking Status Code Start Date End Date Never smoker [id number] Patient Decision Aids Unknown or Not Available. Discharge Instructions You were admitted to [facility] on 11/03/2021 14:02 with a principal diagnosis of Other specified disorders of bone density and structure, unspecified site You were discharged from [facility] on 11/03/2021 14:02 Should you have any questions prior to discharge, please contact a member of your healthcare team. If you have left the hospital and have any questions, please contact your primary care physician. Chief Complaint and Reason For Visit Chief Complaint Date of Onset HX OF OSTEOPENIA Function Status Unknown or Not Available. Plan of Care Unknown or Not Available. Referral/Transition of Care Unknown or Not Available.
--- OUTSIDE RECORDS SUMMARY | 2022-09-04 17:28 | XMS_ITS | CCD ---
Author Name Unknown Address [address] [place] [address] [phone] Organization Unknown Address [address] [place] [address] [phone] Care Team Providers Care Showplace Manager Name Role Phone OMER GRIFFIN, BREE Gonzalez Attending Physician [phone] Vital Signs Unknown or Not Available. Allergies Allergy Code Allergy Type Reaction Status LISINOPRIL 35425 Drug allergy COUGH Active Procedures Unknown or Not Available. History of Immunizations Unknown or Not Available. Problems Unknown or Not Available. Results Unknown or Not Available. Active Medications Unknown or Not Available. Medications Administered During Visit Unknown or Not Available. Encounters Encounter Diagnosis Diagnosis Code Start Date Cardiomegaly I517 11/15/2020 Social History Smoking Status Code Start Date End Date Never smoker [id number] Patient Decision Aids Unknown or Not Available. Discharge Instructions You were admitted to [facility] 01 on 11/15/2020 09:40 with a principal diagnosis of Cardiomegaly You were discharged from [facility] 01 on 11/15/2020 09:40 Should you have any questions prior to [...]
[2022-09-04 21:22] LABS: HCT 39.7 % (36.0-46.0); HGB 13.1 g/dL (11.2-15.7); MCH 30.3 pg (27.0-33.0); MCV 92 fL (80-95); MPV 10.7 fL (8.0-11.0); Platelet Count 348 10^3/uL (130-400); RBC 4.33 10^6/uL (3.93-5.22); RDW-SD 43.7 fL; WBC 9.83 10^3/uL (4.4-10.8)
[2022-09-04 21:55] LABS: ALT 25 U/L (14-59); AST 30 U/L (15-37); Albumin 3.5 g/dL (3.4-5.0); Alkaline Phosphatase 105 U/L (46-116); Anion Gap 8.2 mmol/L (3-11); BUN 18 mg/dL (7-18); Bilirubin, Total 0.5 mg/dL (0.2-1.0); CO2 27.8 mmol/L (21.0-32.0); Calcium 9.2 mg/dL (8.5-10.1); Chloride 103 mmol/L (98-107); Estimated GFR 58.02 (mL/min/1.73m2); Glucose 120 mg/dL (74-106); Magnesium 1.5 mg/dL (1.8-2.4); Potassium 3.6 mmol/L (3.5-5.1); Sodium 139 mmol/L (136-145); Total Protein 7.1 g/dL (6.4-8.2)
[2022-09-06 10:30] LABS: Hepatitis C Ab w Rflx HCV PCR Negative (Negative)
== END 2022-09-04 17:24 | disposition home or self-care (01) ==
LOC: NCHCN 17:23
PROVIDERS: PCP Nurse Practitioner Family; Visit Provider Nurse Practitioner Family
DX: E83.42 Hypomagnesemia (principal); E66.9 Obesity, unspecified; Z13.0 Encounter for screening for diseases of the blood and blood-forming organs and certain disorders involving the immune mechanism; Z11.59 Encounter for screening for other viral diseases; I10 Essential (primary) hypertension
CPT/HCPCS: 80053; 85027; 86803; 83735

== ENCOUNTER 2023-02-22 15:57 | Outpatient (REF) | payer MEDICARE, SELFPAY ==
[2023-02-22 15:00] LABS: HCT 38.6 % (36.0-46.0); HGB 12.6 g/dL (11.2-15.7); MCH 29.9 pg (27.0-33.0); MCHC 32.6 % (32.0-36.0); MCV 92 fL (80-95); MPV 10.4 fL (8.0-11.0); Platelet Count 308 10^3/uL (130-400); RBC 4.22 10^6/uL (3.93-5.22); RDW 12.8 % (11.7-14.6); RDW-SD 42.2 fL; WBC 6.98 10^3/uL (4.4-10.8)
[2023-02-22 15:32] LABS: Anion Gap 4.6 mmol/L (3-11); BUN 13 mg/dL (7-18); CO2 30.4 mmol/L (21.0-32.0); CREATININE 0.9 mg/dL (0.55-1.02); Calcium 9.5 mg/dL (8.5-10.1); Chloride 105 mmol/L (98-107); Estimated GFR 65.44 (mL/min/1.73m2); Glucose 102 mg/dL (74-106); Potassium 4.4 mmol/L (3.5-5.1); Sodium 140 mmol/L (136-145)
[2023-02-22 15:44] LABS: Hemoglobin A1C 5.4 % (<5.7)
== END 2023-02-22 15:58 | disposition home or self-care (01) ==
LOC: NCHCN 15:57
PROVIDERS: PCP Nurse Practitioner Family; Visit Provider Nurse Practitioner Family
DX: R73.03 Prediabetes (principal); I10 Essential (primary) hypertension; Z86.2 Personal history of diseases of the blood and blood-forming organs and certain disorders involving the immune mechanism
CPT/HCPCS: 80048; 85027; 83036

== ENCOUNTER 2023-10-08 15:19 | Outpatient (REF) | payer MEDICARE, SELFPAY ==
[2023-10-08 15:55] LABS: HCT 40.9 % (36.0-46.0); HGB 13.7 g/dL (11.2-15.7); MCH 31.5 pg (27.0-33.0); MCHC 33.5 % (32.0-36.0); MCV 94 fL (80-95); MPV 10.1 fL (8.0-11.0); Platelet Count 398 10^3/uL (130-400); RBC 4.35 10^6/uL (3.93-5.22); RDW 12.3 % (11.7-14.6); RDW-SD 42.8 fL; WBC 8.26 10^3/uL (4.4-10.8)
[2023-10-08 16:44] LABS: Hemoglobin A1C 5.5 % (<5.7)
[2023-10-08 17:11] LABS: Iron 66 ug/dL (50-170); Total Iron Binding Capacity 273 ug/dL (250-450); Transferrin Sat 24 % (15-50)
[2023-10-08 17:27] LABS: ALT 27 U/L (14-59); AST 31 U/L (15-37); Albumin 3.5 g/dL (3.4-5.0); Alkaline Phosphatase 109 U/L (46-116); Anion Gap 6.6 mmol/L (3-11); BUN 11 mg/dL (7-18); Bilirubin, Total 0.47 mg/dL (0.2-1.0); CO2 30.4 mmol/L (21.0-32.0); CREATININE 0.7 mg/dL (0.55-1.02); Calcium 9.3 mg/dL (8.5-10.1); Calculated LDL 92 mg/dL (<100); Chloride 102 mmol/L (98-107); Cholesterol 179 mg/dL (<200); Estimated GFR 88.47 (mL/min/1.73m2); Ferritin 65 ng/mL (8-252); Glucose 94 mg/dL (74-106); HDL Cholesterol 74 mg/dL (40-60); Magnesium 1.8 mg/dL (1.8-2.4); Potassium 3.7 mmol/L (3.5-5.1); Sodium 139 mmol/L (136-145); TSH 1.34 uIU/Ml (0.36-3.74); Triglyceride 65 mg/dL (<150); Vitamin B12 1650 pg/mL (193-986)
== END 2023-10-08 15:20 | disposition home or self-care (01) ==
LOC: NCHCN 15:19
PROVIDERS: PCP Nurse Practitioner Family; Visit Provider Nurse Practitioner Family
DX: I10 Essential (primary) hypertension (principal); E78.5 Hyperlipidemia, unspecified; E03.9 Hypothyroidism, unspecified; R73.03 Prediabetes; E83.42 Hypomagnesemia; E53.8 Deficiency of other specified B group vitamins; Z86.2 Personal history of diseases of the blood and blood-forming organs and certain disorders involving the immune mechanism
CPT/HCPCS: 80053; 80061; 85027; 82607; 82728; 83036; 83540; 83550; 83735; 84443